=== PATIENT | female | born 1995 | race Caucasian/White ===

== ENCOUNTER 2020-05-01 11:09 | Emergency (ER) | payer OTHER ==
[~2020-05-01] VITALS: Ht 157.5 cm; Wt 52.7 kg
[2020-05-01] MEDS ORDERED: NEXP1IMP SC (11:14)
[2020-05-01 11:54] LABS: BASO % 0.5 % (0.0-1.0); EOS # 0.1 10^3/uL (0.0-0.5); EOS % 0.9 % (0.0-3.0); HEMATOCRIT 42.3 % (36.0-47.0); HEMOGLOBIN 13.9 g/dl (12.0-15.5); LYMPH % 17.9 % (24.0-44.0); MEAN CORPUSCULAR HEMOGLOBIN 29.6 pg (27.0-33.0); MEAN CORPUSCULAR HGB CONC 32.9 g/dl (32.0-36.5); MONO # 0.6 10^3/uL (0.0-0.8); MONO % 10.5 % (0.0-5.0); PLATELET COUNT, AUTOMATED 170 10^3/uL (150-450); WHITE BLOOD COUNT 5.6 10^3/uL (4.0-10.0)
[2020-05-01] MEDS ORDERED: NS 1,000 ML IV ONE (12:00)
[2020-05-01 12:13] LABS: BLOOD UREA NITROGEN 17 MG/DL (7-18); CALCIUM LEVEL 9.1 MG/DL (8.5-10.1); CARBON DIOXIDE LEVEL 28 MEQ/L (21-32); CHLORIDE LEVEL 105 MEQ/L (98-107); CREATININE FOR GFR 0.72 MG/DL (0.55-1.30); GLOMERULAR FILTRATION RATE > 60.0 (>60); GLUCOSE, FASTING 85 MG/DL (70-100); SODIUM LEVEL 138 MEQ/L (136-145)
[2020-05-01] MEDS ORDERED: ACETAMINOPHEN 500 MG TAB PO ONE (12:30)
[2020-05-01 12:44] LABS: HCG, SERUM QUANTITATIVE < 1.0 MIU/ML
[2020-05-01] MEDS ORDERED: KETOROLAC 30 MG/ML 1ML VIAL IV ONE (13:45)
[2020-05-01] MEDS ORDERED: PROV10TA PO (14:00)
[2020-05-01 14:16] VITALS: BP 110/67
--- NOTE | 2020-05-01 14:28 | REP ---
PELVIC ULTRASOUND: Real-time sonographic evaluation of pelvis performed utilizing transabdominal and endovaginal technique. Bladder measures 4.9 x 3.2 x 8.0 cm. Uterus measures 8.9 x 3.5 x 4.7 cm. Endometrial thickness is normal at 2 mm. There is no endometrial fluid collection. Ovaries are normal in size and echotexture, right ovary measuring 3.1 x 2.0 x 2.3 cm, and left ovary 3.1 x 1.6 x 2.1 cm. There is no adnexal mass or free fluid. There is no evidence of ovarian torsion with duplex Doppler evaluation. IMPRESSION: Negative pelvic ultrasound. Electronically Signed by Michele Romero MD 05/01/2020 02:31 P
[2020-05-01 15:20] LABS: CHLAMYDIA DNA AMPLIFICATION NEGATIVE (NEGATIVE); GC DNA AMPLIFICATION NEGATIVE (NEGATIVE)
[2020-05-02] MEDS ORDERED: medroxyPROGESTERone 5MG TABLET PO SCH (09:00)
== END 2020-05-01 14:17 | disposition home or self-care (01) ==
LOC: M ED 11:09
DX: N93.8 Other specified abnormal uterine and vaginal bleeding (principal); Z79.3 Long term (current) use of hormonal contraceptives
CPT/HCPCS: 76830; 76856; 80048; 81001; 84702; 85025; 86850; 86900; 86901; 87210; 87661; 93976; 96361; 96374; 99284; J1885

== ENCOUNTER 2021-03-05 09:56 | Emergency (ER) | payer BC, OTHER ==
[~2021-03-05] VITALS: Ht 160 cm; Wt 62.0 kg
[~2021-03-05 09:56] MED LIST: NEXP1IMP SC; PROV10TA PO
[2021-03-05 11:40] LABS: BASO % 0.5 % (0.0-1.0); EOS # 0.1 10^3/uL (0.0-0.5); EOS % 0.8 % (0.0-3.0); HEMATOCRIT 41.7 % (36.0-47.0); HEMOGLOBIN 13.7 g/dl (12.0-15.5); LYMPH # 1.3 10^3/uL (1.5-5.0); LYMPH % 18.8 % (24.0-44.0); MEAN CORPUSCULAR HGB CONC 32.9 g/dl (32.0-36.5); MEAN CORPUSCULAR VOLUME 91.2 fl (80.0-96.0); MONO # 0.7 10^3/uL (0.0-0.8); MONO % 9.8 % (2.0-8.0); NEUTROPHILS # 4.7 10^3/uL (1.5-8.5); NEUTROPHILS % 69.8 % (36.0-66.0); PLATELET COUNT, AUTOMATED 175 10^3/uL (150-450); RED BLOOD COUNT 4.57 10^6/uL (4.00-5.40); WHITE BLOOD COUNT 6.7 10^3/uL (4.0-10.0)
--- NOTE | 2021-03-05 12:25 | REP ---
INDICATION: cramping. COMPARISON: None. TECHNIQUE: Multiple sonographic images of the uterus including transabdominal, endovaginal and Doppler ultrasound. FINDINGS: The uterus is anteverted and normal size measuring 8.7 x 4.0 x 4.5 cm. The endometrium is not thickened measuring 6.7 mm. There is no intrauterine gestation visible at this time. This is nonspecific and could be from early gestation not yet visible ultrasonographically, spontaneous or ectopic gestation. Further follow-up is recommended. Right ovary: The right ovary measures 1.9 x 1.3 x 2.7 cm and is normal size. There is no dominant mass or cyst. Left ovary: The left ovary measures 3.7 x 2.2 x 2.7 cm and is normal size. There is a left ovarian cyst measuring 2.8 x 2.1 x 2.1 cm. There is vascular flow in both ovaries. The Doppler resistive index in the parenchymal arteries of the left ovary is 0.62 and right ovary 0.57 There is a trace of free fluid in the cul-de-sac. IMPRESSION: There is no visible intrauterine gestation at this time. This is nonspecific and could be from early gestation and visible ultrasonographically, spontaneous or ectopic gestation. Follow-up is recommended. Trace of free fluid in the cul-de-sac. 2.8 cm left ovarian cyst. <Electronically signed by Michele Posadas > 03/05/21 [id number]
[2021-03-05 14:46] VITALS: BP 124/74
== END 2021-03-05 14:50 | disposition home or self-care (01) ==
LOC: M ED 09:56
DX: R10.2 Pelvic and perineal pain (principal); N83.202 Unspecified ovarian cyst, left side; Z98.890 Other specified postprocedural states

== ENCOUNTER → 2022-07-01 | Outpatient (REF) | payer BC ==
[~2022-07-01] MED LIST changes: +ETON68IM SC; -NEXP1IMP SC
== END ==
LOC: M WUC 19:21
PROVIDERS: ATTEND Physician Assistant
DX: J02.9 Acute pharyngitis, unspecified (principal)

== ENCOUNTER → 2022-07-03 | Outpatient (CLI) | payer BC ==
[2022-07-03 10:42] LABS: BASO % 0.6 % (0.0-1.0); EOS # 0.1 10^3/uL (0.0-0.5); EOS % 2.2 % (0.0-3.0); HEMATOCRIT 38.9 % (36.0-47.0); HEMOGLOBIN 12.9 g/dl (12.0-15.5); LYMPH # 0.7 10^3/uL (1.5-5.0); LYMPH % 13.8 % (24.0-44.0); MEAN CORPUSCULAR HEMOGLOBIN 30.4 pg (27.0-33.0); MEAN CORPUSCULAR HGB CONC 33.2 g/dl (32.0-36.5); MEAN CORPUSCULAR VOLUME 91.7 fl (80.0-96.0); MONO # 0.7 10^3/uL (0.0-0.8); NEUTROPHILS # 3.5 10^3/uL (1.5-8.5); NEUTROPHILS % 70.2 % (36.0-66.0); PLATELET COUNT, AUTOMATED 133 10^3/uL (150-450); RED BLOOD COUNT 4.24 10^6/uL (4.00-5.40)
[2022-07-03 11:21] LABS: ALBUMIN 3.8 GM/DL (3.2-5.2); ALT/SGPT 20 U/L (12-78); BILIRUBIN,TOTAL 0.9 MG/DL (0.2-1.0); BLOOD UREA NITROGEN 13 MG/DL (7-18); CARBON DIOXIDE LEVEL 27 MEQ/L (21-32); CHLORIDE LEVEL 104 MEQ/L (98-107); CREATININE FOR GFR 0.55 MG/DL (0.55-1.30); GLOMERULAR FILTRATION RATE > 60.0 (>60); GLUCOSE, FASTING 79 MG/DL (70-100); POTASSIUM SERUM 3.7 MEQ/L (3.5-5.1); SODIUM LEVEL 137 MEQ/L (136-145); TOTAL PROTEIN 7.5 GM/DL (6.4-8.2)
== END ==
LOC: M WUC 08:27
PROVIDERS: ATTEND Student in an Organized Health Care Education/Training Program
DX: R53.83 Other fatigue (principal)

== ENCOUNTER 2022-12-10 09:54 | Emergency (ER) | payer OTHER, BC ==
[~2022-12-10] VITALS: Ht 160 cm; Wt 63.4 kg
[2022-12-10] MEDS ORDERED: VITMTA PO (10:19)
[2022-12-10] MEDS ORDERED: ONDANSETRON 4MG ORAL DISINTEGRATING TAB PO ONE (13:00)
[2022-12-10] MEDS ORDERED: KETO10TAB PO (14:22)
[2022-12-10] MEDS ORDERED: ONDA4TAB6 PO (14:22)
[2022-12-10 14:37] VITALS: BP 113/72
== END 2022-12-10 15:01 | disposition home or self-care (01) ==
LOC: M ED 09:54
DX: S06.0X0A Concussion without loss of consciousness, initial encounter (principal); V49.40XA Driver injured in collision with unspecified motor vehicles in traffic accident, initial encounter; Z79.810 Long term (current) use of selective estrogen receptor modulators (SERMs); Z79.899 Other long term (current) drug therapy

== ENCOUNTER 2023-10-22 19:21 | Emergency (ER) | payer OTHER, BC ==
[~2023-10-22] VITALS: Ht 162.6 cm; Wt 64.4 kg
[~2023-10-22 19:21] MED LIST changes: +KETO10TAB PO; +ONDA4TAB6 PO; +VITMTA PO
[2023-10-22 22:30] VITALS: BP 120/85; TEMP 98.5; O2SAT 99
[2023-10-22] MEDS ORDERED: KETOROLAC 30 MG/ML 1ML VIAL IM ONE (22:35)
[2023-10-22] MEDS ORDERED: methocarbamoL 500 MG TAB PO ONE (22:35)
[2023-10-22] MEDS ORDERED: METH-1164 PO (22:36)
== END 2023-10-22 23:00 | disposition home or self-care (01) ==
LOC: M ED 19:21
DX: M54.2 Cervicalgia (principal); V43.53XA Car driver injured in collision with pick-up truck in traffic accident, initial encounter; Y92.410 Unspecified street and highway as the place of occurrence of the external cause; Z79.899 Other long term (current) drug therapy
CPT/HCPCS: 72125; 96372; 99283; J1885

== ENCOUNTER → 2024-05-30 | Outpatient (REF) | payer BC ==
[~2024-05-30] MED LIST changes: +METH-1164 PO; +ONDA-282 PO; -ONDA4TAB6 PO
[2024-05-30 18:08] LABS: APPEARANCE, URINE HAZY (CLEAR); BACTERIA, URINE AUTO 1+ (NEGATIVE); BILIRUBIN, URINE AUTO NEGATIVE (NEGATIVE); BLOOD, URINE BLOOD NEGATIVE (NEGATIVE); COLOR, URINE YELLOW (YELLOW); GLUCOSE, URINE (UA) AUTO NEGATIVE (NEGATIVE); KETONE, URINE AUTO NEGATIVE (NEGATIVE); LEUKOCYTE ESTERASE, URINE AUTO 1+ (NEGATIVE); MUCUS, URINE SMALL (NEGATIVE); NITRITE, URINE AUTO NEGATIVE (NEGATIVE); PROTEIN, URINE AUTO NEGATIVE (NEGATIVE); RBC, URINE AUTO 5 /HPF (0-3); SPECIFIC GRAVITY URINE AUTO 1.027 (1.002-1.035); SQUAMOUS EPITHELIAL CELL UR AU 12 /HPF (0-6); UROBILINOGEN, URINE AUTO 0.2 mg/dL (0.0-2.0); WBC, URINE AUTO 9 /HPF (0-3)
== END ==
LOC: M LAB REF 17:22
PROVIDERS: ATTEND Physician Assistant
DX: N39.0 Urinary tract infection, site not specified (principal)

== ENCOUNTER → 2025-01-01 | Outpatient (REF) | payer BC ==
[2025-01-01 17:27] LABS: APPEARANCE, URINE HAZY (CLEAR); BACTERIA, URINE AUTO 1+ (NEGATIVE); BILIRUBIN, URINE AUTO NEGATIVE (NEGATIVE); BLOOD, URINE BLOOD 3+ (NEGATIVE); COLOR, URINE AMBER (YELLOW); GLUCOSE, URINE (UA) AUTO NEGATIVE (NEGATIVE); KETONE, URINE AUTO NEGATIVE (NEGATIVE); LEUKOCYTE ESTERASE, URINE AUTO TRACE (NEGATIVE); MUCUS, URINE SMALL (NEGATIVE); NITRITE, URINE AUTO POSITIVE (NEGATIVE); PROTEIN, URINE AUTO NEGATIVE (NEGATIVE); RBC, URINE AUTO TNTC /HPF (0-3); SPECIFIC GRAVITY URINE AUTO 1.014 (1.002-1.035); SQUAMOUS EPITHELIAL CELL UR AU 8 /HPF (0-6); WBC, URINE AUTO 17 /HPF (0-3)
== END ==
LOC: M LAB REF 16:28
PROVIDERS: ATTEND Physician Assistant
DX: N39.0 Urinary tract infection, site not specified (principal)